=== PATIENT | female | born 1970 | race Caucasian/White ===

== ENCOUNTER 2021-02-01 17:44 | Emergency (ER) | payer OTHER, SELFPAY ==
[2021-02-01 17:55] VITALS: BP 185/99; PULSE 94; RESP 16; TEMP 37.1; O2SAT 98
--- NOTE | 2021-02-01 18:16 | ED.URI ---
HPI - URI/Sore Throat General Chief Complaint: Upper Respiratory Infection Stated Complaint: sore throat Source: patient and RN notes reviewed Mode of arrival: ambulatory History of Present Illness HPI Narrative: This is a 50-year-old female who presented to urgent care with complaints of left ear pain and throat pain that occurred 2 days ago. Patient notes that it is difficult for her to swallow and she has used throat lozenges to relieve her pain with no relief. The patient denies SOB, CP, palpitation, extremity numbness, lightheadedness, dizziness, constipation, diarrhea, chills, or fever. MD elicited complaint: sore throat Related Data Allergies Allergy/AdvReac Type Severity Reaction Status Date / Time latex Allergy Unknown Unknown Verified 02/01/21 18:10 Cat Dander Allergy Mild Unknown Uncoded 02/01/21 18:10 Molds and Smuts Allergy Mild Unknown Uncoded 02/01/21 18:10 Review of Systems Review of Systems: A 14 organ system Review of Systems was performed and pertinent positives included in the HPI, otherwise remaining ROS is negative. [facility] Family History Family History Mother Family history of chronic obstructive pulmonary disease Social History Social History Smoking status: Never smoker Second hand tobacco smoke exposure: No Alcohol intake: current Exam Narrative: GENERAL: This is a well-nourished, well-developed patient, in no apparent distress. HEAD: normocephalic, atraumatic. EYES: PERRL. Sclera clear/white. Vision is grossly intact. EARS: External ears normal, auditory canals clear and without drainage, TMs normal without perforation. Hearing grossly intact. NOSE: External nose normal with no obvious nasal discharge, nares without redness, no rhinorrhea. THROAT: Mucous membranes moist, posterior pharynx edema, erythematous. NECK: Neck supple, non-tender without lymphadenopathy, masses or thyromegaly. CARDIOVASCULAR: Regular rate and rhythm without murmurs, gallops, or rubs. RESPIRATORY: Clear to auscultation. Breath sounds equal bilaterally. No wheezes, rales, or rhonchi. GASTROINTESTINAL: Abdomen soft, non-tender, nondistended. Bowel sounds are active. No hepato-splenomegaly, or palpable masses. No guarding. SKIN: warm, intact with no suspicious lesions or rash, good texture and turgor. NEURO: awake, alert, and oriented to person, place and time. There were no obvious focal neurologic abnormalities. Steady gait EXTREMITIES: Normal range of motion. No edema. No calf tenderness. Negative Homans sign bilaterally. BACK: Nontender without deformity or crepitance. No flank tenderness. Course Course Emergency Course: Patient will be given Augmentin for the treatment of strep Vital Signs Vital signs: Vital Signs Temperature 98.7 F 02/01/21 17:55 Pulse Rate 94 02/01/21 17:55 Respiratory Rate 16 02/01/21 17:55 Blood Pressure 185/99 H 02/01/21 17:55 Pulse Oximetry 98 02/01/21 17:55 Temperature 98.7 F 02/01/21 17:55 Pulse Rate 94 02/01/21 17:55 Respiratory Rate 16 02/01/21 17:55 Blood Pressure 185/99 H 02/01/21 17:55 Pulse Oximetry 98 02/01/21 17:55 MDM - URI/Sore Throat Differential Diagnosis Differential diagnosis: Likely upper respiratory infection, sinusitis, influenza and pharyngitis Lab Data Labs: Strep Screen Positive Group A Strep *(Reference Range: Negative)* Discharge Plan Discharge Clinical Impression: Strep pharyngitis Otitis media Qualifiers: Otitis media type: unspecified Chronicity: acute Qualified Code(s): H66.90 - Otitis media, unspecified, unspecified ear Patient Disposition: Home, Self-Care Condition: Stable Instructions: Antibiotic Form, Pharyngitis (ED), Ear Infection (ED) Additional Instructions: Take all medications as prescribed How are ear infections treat
[2021-02-01] MEDS: cloNIDine HCL 0.1 MG TABLET PO (18:32)
== END 2021-02-01 18:40 | disposition home or self-care (01) ==
PROVIDERS: Emergency Provider Nurse Practitioner
DX: H66.90 Otitis media, unspecified, unspecified ear (principal)
CPT/HCPCS: 87880; 99213; A9270; G0463

== ENCOUNTER 2022-11-06 13:30 | Emergency (ER) | payer OTHER, SELFPAY ==
--- NOTE | ~2022-11-06 | CT_ITS ---
EXAMINATION: CT abdomen pelvis wo con DATE: 11/06/2022 15:53 INDICATION: Right flank pain, hematuria TECHNIQUE: Computed tomography (CT) of the abdomen and pelvis was performed without intravenous contr ast. The dose-length product (DLP) was 1652.52 mGy-cm. Automated exposure control and iterative recon struction technique were employed. COMPARISON: 03/11/2018 FINDINGS: Minimal dependent atelectasis is present in the lung bases. The heart size is normal. Calci fied coronary artery atherosclerosis is noted. There is a small sliding hiatal hernia. There are geog raphic areas of low attenuation in the liver, likely hepatic steatosis. The spleen, pancreas, gallbla dder, and adrenal glands are normal. The right kidney is unremarkable. There is a 3.7 cm cyst of the left kidney. No stones are identified in the kidneys, ureters, or bladder. No hydronephrosis or hydro ureter. Colonic diverticulosis is present without evidence of diverticulitis. There are surgical apple ges of the distal small bowel. No free intraperitoneal gas or evidence of bowel obstruction. No patho logically enlarged abdominal or pelvic lymph nodes are identified. There is a small umbilical hernia containing fat. There is mild lumbar spondylosis. IMPRESSION: 1. No CT correlate for the patient's symptoms. Reviewed, dictated and finalized at location F.
[2022-11-06 13:45] VITALS: BP 125/68; PULSE 90; RESP 20; TEMP 36.6; O2SAT 98
[2022-11-06 15:10] LABS: Basophils Percent Auto 0.4 % (0.2-1.2); Eosinophils Absolute Auto 0.2 K/mm3 (0-0.3); Eosinophils Percent Auto 1.9 % (0-4.4); Hematocrit 36.7 % (37.0-47.0); Hemoglobin 11.3 g/dL (12.0-15.0); Immature Granulocyte Absolute 0.02 K/mm3 (0.00-0.031); Immature Granulocyte Percent A 0.3 % (0-0.5); Lymphocytes Absolute Auto 1.92 K/mm3 (0.9-3.2); Lymphocytes Percent Auto 24.6 % (18.3-44.2); Mean Corpuscular HGB Conc 30.8 g/dl (32-36); Mean Corpuscular Hemoglobin 29.6 pg (26-34); Mean Corpuscular Volume 96.1 fl (80-100); Mean Platelet Volume 10.5 fl (7.4-10.4); Monocytes Absolute Auto 0.5 K/mm3 (0.1-0.6); Monocytes Percent Auto 6.1 % (2.6-8.5); Neutrophils Absolute Auto 5.2 K/mm3 (1.3-6.7); Neutrophils Percent Auto 66.7 % (45.5-73.1); Platelet Count Result 244 k/mm3 (150-375); Red Blood Count 3.82 M/mm3 (4.2-5.4); White Blood Count 7.8 K/mm3 (4.5-10.0)
[2022-11-06 15:12] LABS: Appearance Urine Clear (Clear); Bilirubin Urine Negative (Negative); Blood Urine Negative (Negative); Color Urine Yellow (Yellow); Glucose Urine UA Negative (Negative); Ketones Urine Negative (Negative); Leukocyte Esterase Ur Negative LEU/UL (Negative); Nitrate Urine Negative (Negative); Protein Urine Negative (Negative); Specific Grav Ur 1.024 (1.001-1.035); pH Urine 6.5 (5.0-9.0)
[2022-11-06 15:22] LABS: Alanine Aminotransferase 33 U/L (6-35); Albumin Level 4.1 g/dL (3.5-5.1); Alkaline Phosphatase 80 U/L (38-126); Anion Gap 8 mmol/L (8-16); Aspartate Amino Transferase 28 U/L (14-36); Bilirubin,Total 0.8 mg/dL (0.2-1.3); Blood Urea Nitrogen 30 mg/dL (7-17); Calcium 8.8 mg/dL (8.4-10.2); Carbon Dioxide 28 mmol/L (22-30); Chloride 101 mmol/L (98-107); Estimated CRCL calculation 82 ml/min; Estimated Glomerular Filt Rate > 60; Glucose 100 mg/dL (65-110); Potassium 3.8 mmol/L (3.4-5.0); Sodium 137 mmol/L (137-145)
[2022-11-06 15:23] VITALS: BP 156/95; PULSE 85; RESP 20; O2SAT 100
[2022-11-06 15:29] LABS: Add Urine Microscopic? NO
--- NOTE | 2022-11-06 15:36 | ED.ABDPAIN ---
HPI - Abdominal Pain General Chief Complaint: Abdominal Pain Stated Complaint: R Lower back pain Time Seen by Provider: 11/06/22 15:17 History of Present Illness HPI narrative: Patient is a 52-year-old female with a history of hypertension, hyperlipidemia presenting with flank pain. Patient states that for the last several days she has had right flank pain that is worsened with moving her right leg. States that she has had some hematuria. She denies abdominal pain, nausea or vomiting. States that she did have a few episodes of diarrhea. No melena or hematochezia. Denies chest pain, shortness of breath, fevers, lightheadedness. Has been using Tylenol with moderate relief. Related Data Home Medications Medication Instructions Recorded Confirmed multivitamin (Daily Multi-Vitamin 1 tablet PO DAILY 03/02/21 11/01/22 tablet) Allergies Allergy/AdvReac Type Severity Reaction Status Date / Time latex Allergy Unknown Unknown Verified 11/01/22 13:29 Cat Dander Allergy Mild Unknown Uncoded 11/01/22 13:29 Molds and Smuts Allergy Mild Unknown Uncoded 11/01/22 13:29 Review of Systems Review of Systems: All systems reviewed & are unremarkable except as noted in HPI and below PMFSH Past Medical History Medical History Allergies Asthma Body mass index [BMI] 40.0-44.9, adult (04/28/15) Chronic fatigue Hypertension Left ovarian cyst Morbid (severe) obesity due to excess calories (04/28/15) Sleep apnea in adult Surgical History Surgical History H/O: hysterectomy Family History Family History Mother Alcoholism Asthma Diabetes mellitus Hypertension Father Alcoholism Cancer Diabetes mellitus Hypertension Heart disease Sibling Cancer Diabetes mellitus Grandparent Alcoholism Cancer Diabetes mellitus Hypertension Grandparent Alcoholism Cancer Diabetes mellitus Hypertension Heart disease Social History Social History Smoking status: Never smoker Second hand tobacco smoke exposure: No Alcohol intake: current Drinks per week: 2 Alcohol use details: wine Substance use: never Lack of Transportation: No Lack of Food: Never True Current Housing: I Have Housing Concerned About Future Housing: No Difficulty Paying Gas/Electric Bills: No Difficulty Paying for Meds: No Currently Unemployed: No Difficulty w/ Childcare or Family Care: No Living arrangements: with roommate(s) Occupation/Education: occupation Additional occupation/education comments: Customer Service Gender identity (if verbalized by the patient): Female Exam Narrative: GENERAL: Well-appearing and in no acute distress. Pleasant and cooperative. HEAD: Normocephalic, atraumatic. EYES: PERRLA and EOMI. ENT: Mucous membranes moist. NECK: Supple. CHEST: No respiratory distress. HEART: Regular rate and rhythm ABDOMEN: Soft, nontender, nondistended; + right flank tenderness EXTREMITIES: Normal range of motion. SKIN: Warm, dry, no rash. NEURO: Alert and oriented x3. No focal gross sensory or motor deficits PSYCH: Normal mood and affect. Course Vital Signs Vital signs: Vital Signs Temperature 97.8 F 11/06/22 13:45 Pulse Rate 90 11/06/22 13:45 Respiratory Rate 20 11/06/22 13:45 Blood Pressure 125/68 11/06/22 13:45 Pulse Oximetry 98 11/06/22 13:45 Oxygen Delivery Room Air 11/06/22 13:45 Temperature 97.8 F 11/06/22 13:45 Pulse Rate 87 11/06/22 19:05 Respiratory Rate 20 11/06/22 19:05 Blood Pressure 147/88 H 11/06/22 19:05 Pulse Oximetry 100 11/06/22 19:05 Oxygen Delivery Room Air 11/06/22 13:45 MDM - Abdominal Pain MDM Narrative Medical decision making narrative: Patient is a 52-year-old female presenting wit
[2022-11-06 15:43] LABS: Pregnancy On Board Control Positive; Urine Pregnancy Test Negative
--- NOTE | 2022-11-06 15:47 | PC.NURSE ---
pt taken for CT scan at this time
--- NOTE | 2022-11-06 15:56 | PC.NURSE ---
pt returned to room 4 at this time
[2022-11-06] MEDS: ACETAMINOPHEN 500 MG TABLET 1000 MG PO (16:01)
[2022-11-06 19:05] VITALS: BP 147/88; PULSE 87; RESP 20; O2SAT 100
== END 2022-11-06 19:05 | disposition home or self-care (01) ==
PROVIDERS: Emergency Medicine; Emergency Provider Emergency Medicine; PCP Family Medicine
DX: M54.50 Low back pain, unspecified (principal); J45.909 Unspecified asthma, uncomplicated; I10 Essential (primary) hypertension; E66.01 Morbid (severe) obesity due to excess calories; Z68.42 Body mass index [BMI] 45.0-49.9, adult; G47.30 Sleep apnea, unspecified; Z90.710 Acquired absence of both cervix and uterus
CPT/HCPCS: 36415; 74176; 80053; 81003; 81025; 85025; 99284; A9270

== ENCOUNTER 2023-02-28 09:04 | Outpatient (CLI) | payer OTHER, SELFPAY ==
--- NOTE | ~2023-02-28 | NM_ITS ---
EXAMINATION: NM evaristo stress w perfusion DATE: 02/28/2023 13:28 INDICATION: Dyspnea on exertion TECHNIQUE: Rest images were obtained following intravenous administration of 9.5 mCi Tc99m tetrofosmi n (Myoview). The patient was infused intravenously with Lexiscan (Regadenoson). Then, 31 mCi Tc99m te trofosmin (Myoview) was administered intravenously, and stress images were obtained. Data was reconst ructed into short axis and horizontal and vertical long axis SPECT images. Gated SPECT images were al so obtained. COMPARISON: None. FINDINGS: There is no definite reversible or fixed perfusion abnormality to suggest ischemia or infar ction. There is normal left ventricular chamber size, wall motion and ejection fraction. Left ventr icular ejection fraction measures >70%. IMPRESSION: 1. Normal myocardial perfusion at rest and during stress. 2. Left ventricular ejection fraction measuring >70%. Reviewed, dictated and finalized at location A. OPERATOR
--- NOTE | 2023-02-28 09:34 | ECHO_ITS ---
Patient Info Name: Ora Robison Age: 52 years : 1970 Gender: Female Ht: 62 in Wt: 270 lbs BSA: 2.39 m2 HR: 80 bpm BP: 120 / 80 mmHg Technical Quality: Fair Exam Date: 02/28/2023 10:43 AM Exam Location: Echo Lab Patient Status: Outpatient Admit Date: 02/28/2023 Staff Ordering Physician: Bipin Salmon DO Attending Provider: Bipin Salmon DO Referring Physician: Luis Antonio CALVILLO; Exam Type: CA echo doppler color flow Study Info Indications R06.09 - Other forms of dyspnea Complete two-dimensional, color flow and Doppler transthoracic echocardiogram is performed. Summary 1. Complete two-dimensional, color flow and Doppler transthoracic echocardiogram is performed. 2. Left ventricular chamber dimension is normal. 3. Left ventricular systolic function is normal, estimated at 65-70%. 4. There is mild concentric increased left ventricular wall thickness. 5. The left ventricular diastolic function is abnormal. 6. E/e' 11 is mildly elevated. 7. Left atrial chamber dimension is mildly enlarged. 8. There is moderate aortic valve sclerosis. 9. The mitral valve has mildly calcified annulus. 10. There is mild mitral valve regurgitation. 11. Dilated inferior vena cava with >50% collapse upon inspiration consistent with elevated right atrial pressure, 10 mmHg. Left Ventricle E/e' 11 is mildly elevated. Left ventricular chamber dimension is normal. Left ventricular systolic function is normal, estimated at 65-70%. There is mild concentric increased left ventricular wall thickness. The left ventricular diastolic function is abnormal. Right Ventricle Right ventricular systolic function is normal and with normal TAPSE 3.6 cm. Right ventricular chamber dimension is normal. Left Atria Left atrial chamber dimension is mildly enlarged. Right Atria Right atrial chamber dimension is normal. Aortic Valve The aortic valve is trileaflet. There is moderate aortic valve sclerosis. There is no aortic valve stenosis. There is no aortic valve regurgitation. Pulmonic Valve There is no pulmonic regurgitation. Mitral Valve The mitral valve has mildly calcified annulus. There is no mitral valve stenosis. There is mild mitral valve regurgitation. Tricuspid Valve There is no tricuspid valve regurgitation. Pericardium/Pleural There is no pericardial effusion. Inferior Vena Cava Dilated inferior vena cava with >50% collapse upon inspiration consistent with elevated right atrial pressure, 10 mmHg. Aorta The aortic root size at the sinus of Valsalva is normal. Left Ventricular Outflow Tract Name Value Normal LVOT 2D LVOT Diameter 2.1 cm LVOT Doppler LVOT Peak Gradient 4 mmHg LVOT Mean Gradient 3 mmHg LVOT VTI 30 cm LVOT VTI/AV VTI Ratio 0.7 LVOT Stroke Volume 108 ml LVOT CO 7.0 l/min LVOT CI 2.9 l/min/m2 Pulmonic Valve Name Value Normal
--- NOTE | 2023-02-28 09:35 | EST_ITS ---
Patient Info Name: Ora Robison Age: 52 years : 1970 Gender: Female Ht: 62 in Wt: 260 lbs BSA: 2.34 m2 Exam Date: 02/28/2023 12:06 PM Exam Location: Echo Lab Patient Status: Outpatient Admit Date: 02/28/2023 Staff Ordering Physician: Bipin Salmon DO Attending Provider: Bipin Salmon DO Exercise Technologist: Fadumo Hernandez RDCS Exercise Physician: Bipin Salmon DO Exam Type: CA stress evaristo w NM Study Info Indications R07.9 - Chest pain, unspecified A regadenoson stress test was performed. Summary 1. 1. Negative lexiscan stress test for ischemic ST changes by ECG criteria. 2. 2. Baseline hypertension. 3. 3. Nuclear scan to follow and will be reported separately. Please correlate with it. 4. 4. Patient informed of the above results. Protocol: Lexiscan Stress ECG Details Stage: REST Duration (min): 1 min : 51 sec HR (bpm): 76 SBP (mmHg): 157 DBP (mmHg): 98 Stage: REST Duration (min): 7 min : 42 sec HR (bpm): 77 SBP (mmHg): 157 DBP (mmHg): 98 Stage: STAGE 1 Duration (min): 1 min : 0 sec HR (bpm): 94 SBP (mmHg): 157 DBP (mmHg): 94 Stage: RECOVERY Duration (min): 1 min : 0 sec HR (bpm): 102 SBP (mmHg): 159 DBP (mmHg): 92 Stage: RECOVERY Duration (min): 2 min : 0 sec HR (bpm): 95 SBP (mmHg): 159 DBP (mmHg): 92 Stage: RECOVERY Duration (min): 3 min : 0 sec HR (bpm): 96 SBP (mmHg): 156 DBP (mmHg): 91 Stage: RECOVERY Duration (min): 3 min : 4 sec HR (bpm): 94 SBP (mmHg): 156 DBP (mmHg): 91 Rest HR: 77 bpm Peak HR: 104 bpm Rest Sys BP: 157 mmHg Peak Sys BP: 159 mmHg Max Pred HR: 170 bpm % Max Pred HR: 61 % Target HR: 145 bpm Max RPP: 16,536 bpm*mmHg Termination Reason: Completed protocol Cardiac Symptoms: Shortness of breath Total Time: 1 min : 0 sec Rest Soler BP: 98 mmHg Peak Soler BP: 92 mmHg Total Dose: 0.4 mg Resting ECG Sinus rhythm. Stress ECG No ST changes. Arrhythmias None. Report Signatures
== END 2023-02-28 09:05 | disposition home or self-care (01) ==
PROVIDERS: PCP Family Medicine; Visit Provider Internal Medicine Cardiovascular Disease
DX: R07.9 Chest pain, unspecified (principal); R06.09 Other forms of dyspnea; I34.0 Nonrheumatic mitral (valve) insufficiency
CPT/HCPCS: 78452; 93017; 93306; A9502; J2785

== ENCOUNTER 2024-08-12 15:37 | Outpatient (CLI) | payer OTHER, SELFPAY ==
--- NOTE | ~2024-08-12 | XR_ITS ---
EXAMINATION: XR chest 2V 08/12/2024 15:59 INDICATION: Shortness of breath PROCEDURE: 2 view chest COMPARISON: 02/15/2012 FINDINGS: The lungs are clear. The cardiomediastinal silhouette is within normal limits. There are no pleural effusions. There is no pneumothorax suspected. Moderate thoracic spondylosis with dextro scoliosis. IMPRESSION: 1: NO ACUTE CARDIOPULMONARY DISEASE. Reviewed, dictated and finalized at location A.
--- NOTE | ~2024-08-12 | US_ITS ---
RIGHT LOWER EXTREMITY VENOUS ULTRASOUND Ordering provider: John Harp DO History: . R60.0 - Localized edema . Comparison: None. FINDINGS: --COMMON FEMORAL: Patent and free of thrombus. Normal compressibility, phasic flow and augmentation. --PROXIMAL SUPERFICIAL FEMORAL: Patent and free of thrombus. Normal compressibility, phasic flow and augmentation. --DISTAL SUPERFICIAL FEMORAL: Patent and free of thrombus. Normal compressibility, phasic flow and au gmentation. --POPLITEAL: Patent and free of thrombus. Normal compressibility, phasic flow and augmentation. --POSTERIOR TIBIAL: Patent and free of thrombus. Normal compressibility, phasic flow and augmentation . IMPRESSION: Negative right lower extremity venous US. No deep vein thrombosis. Reviewed, dictated and finalized at location A.
--- OUTSIDE RECORDS SUMMARY | 2024-08-12 15:41 | XMS_ITS | Clinical Summary ---
Author Organization [facility] Address [address] [place] [address] Care Team Providers Care Functional Tester Typewriters Name Role Phone Alana Davis MD Primary Care Provider [phone] Source Comments [facility],non-owned Affiliates and Associated Physician Practices is amultiple site organization consisting of ambulatory clinics and hospital sitesin [place], [place], [place] and [place]. This disclosure is being madepursuant to the Care Everywhere program and may not contain all information available regarding this patient. Last updated 17.[facility] Allergies Active Allergy Reactions Criticality Noted Date Comments Latex Shortness of Breath High 04/09/2011 Morphine Nausea and/or Vomiting 07/25/2012 Medications * Be aware that medications may not be up to date on this document. Alwaysverify current medications with the patient. No known medications Family History Medical History Relation Name Comments Hypertension Other 1 Diabetes Other 2 Colon Cancer after age 50 or unknown Other 3 Relation Name Status Comments Other 1 Other 2 Other 3 Social History Tobacco Use Types Packs/Day Years Used Date Smoking Tobacco: Never Smokeless Tobacco: Never Alcohol Use Standard Drinks/Week Comments No 0 (1 standard drink = 0.6 oz pur e alcohol) Comments No Sex and Gender Information Value Date Recorded Sex Assigned at Not on file Legal Sex Female 1:05 PM DIRECTOR BUSINESS SYSTEMS Gender Identity Not on file Sexual Orientation Not on file Last Filed Vital Signs Vital Sign Reading Time Taken Comments Blood Pressure 118/72 05/15/2018 4:16 PM CDT Pulse 106 05/15/2018 4:16 PM CDT Temperature 36.8 C (98.3 F) 05/15/2018 4:16 PM CDT Respiratory Rate 14 05/15/2018 4:16 PM CDT Oxygen Saturation 98% 05/15/2018 4:16 PM CDT Inhaled Oxygen Concentration - - Weight 112.5 kg (248 lb) 05/15/2018 4:16 PM CDT Height 157.5 cm (5' 2) 05/15/2018 4:16 PM CDT Body Mass Index 45.36 05/15/2018 4:16 PM CDT Plan of Treatment Health Maintenance Due Date Last Done Comments COLOGUARD (AGES 45-75) - COL ON CA SCREENING 1970 COLON MONITORING 1970 COLONOSCOPY - COLON CA SCREENING 1972 CT COLONOGRAPHY - COLON CA SCREENING 1970 Colorectal Cancer Screening 1970 FIT - COLON CA SCREENING 1970 FLEX SIG - COLON CA SCREENING 1970 LIPID TESTING 1970 MAMMOGRAM 1970 HIV SCREENING 05/06/1987 HEPATITIS C SCREENING 05/01/1990 DTAP/TDAP/TD VACCINES (1 - Tdap) 05/06/1991 HEPATITIS B VACCINE (1 of 3 - 19+ 3-dose series) 05/06/1991 SCREENING FOR DIABETES 05/15/2018 PNEUMOCOCCAL VACCINE 50+ (1 of 1 - PCV) 2022 ZOSTER VACCINE (1 of 2) 2022 COVID-19 VACCINE (1 - 2023-2 5 season) 2023 DEPRESSION SCREENING 02/25/2024 INFLUENZA VACCINE (Season Ended) 2024 HIB VACCINE Aged Out No longer eligi ble based on patient's age to complete this topic HPV VACCINE Aged Out No longer eligi ble based on patient's age to complete this topic MENINGOCOCCAL (Group B) VACC INE SHARED DECISION-MAKING Aged Out No longer eligibl e based on patient's age to complete this topic MENINGOCOCCAL GROUPS A/C/Y/W VACCINE Aged Out No longer eligible b ased on patient's age to [place] [address] MEDICAID [place] Advance Directives * FULL RESUSCITATION (Latest Code Status on File) Date Activated Date Inactivated Comments 10/04/2011 1:16 PM 10/04/2011 5:10 PM Care Teams Functional Tester Typewriters Relationship Specialty Start Date End Date Alana Davis MD PCP - General Family Medicine 07/28/12
--- OUTSIDE RECORDS SUMMARY | 2024-08-12 15:41 | XMS_ITS | Referral Summary ---
Author Organization [facility] [place] [address] Address [address] [place] [address] Care Team Providers Care Front Desk Agent Name Role Phone Shan Gama Primary Care Provider [phone] Allergies No known active allergies Social History Tobacco Use Types Packs/Day Years Used Date Smoking Tobacco: Never Assessed Personal Safety Answer Date Recorded Getting School Help Needed Not on file 05/10 Comments Unknown Sex and Gender Information Value Date Recorded Sex Assigned at Not on file Legal Sex Female 3:30 AM BARGE LOADER Gender Identity Not on file Sexual Orientation Not on file Last Filed Vital Signs Vital Sign Reading Time Taken Comments Blood Pressure 142/68 04/04/2014 8:04 AM BARGE LOADER Pulse 60 04/04/2014 8:04 AM BARGE LOADER Temperature 36.4 C (97.6 F) 04/04/2014 8:04 AM BARGE LOADER Respiratory Rate - - Oxygen Saturation 100% 04/04/2014 8:04 AM BARGE LOADER Inhaled Oxygen Concentration - - Weight 117.9 kg (260 lb) 04/04/2014 8:04 AM BARGE LOADER Height 157.5 cm (5' 2) 04/04/2014 8:04 AM BARGE LOADER Body Mass Index 47.55 04/04/2014 8:04 AM BARGE LOADER Plan of Treatment Not on file Insurance [facility] CHOICE [facility] HMO/PPO Address: [facility] [address] [place] [address] Care Teams Front Desk Agent Relationship Specialty Start Date End Date Shan Gama DO PCP - General Family Medicine 03/05/21
--- OUTSIDE RECORDS SUMMARY | 2024-08-12 15:41 | XMS_ITS | Clinical Summary ---
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 HOUSE OPERATOR Gender Identity Not on file Sexual Orientation Not on file Last Filed Vital Signs Vital Sign Reading Time Taken Comments Blood Pressure 142/68 04/04/2014 8:04 AM PUMP HOUSE OPERATOR Pulse 60 04/04/2014 8:04 AM PUMP HOUSE OPERATOR Temperature 36.4 C (97.6 F) 04/04/2014 8:04 AM PUMP HOUSE OPERATOR Respiratory Rate - - Oxygen Saturation 100% 04/04/2014 8:04 AM PUMP HOUSE OPERATOR Inhaled Oxygen Concentration - - Weight 117.9 kg (260 lb) 04/04/2014 8:04 AM PUMP HOUSE OPERATOR Height 157.5 cm (5' 2) 04/04/2014 8:04 AM PUMP HOUSE OPERATOR Body Mass Index 47.55 04/04/2014 8:04 AM PUMP HOUSE OPERATOR Plan of Treatment Not on file Insurance [facility] [place] [address] Care Teams Lamination Builder Relationship Specialty Start Date End Date Shan Gama DO PCP - General Family Medicine 03/05/21
== END 2024-08-12 15:38 | disposition home or self-care (01) ==
PROVIDERS: PCP Family Medicine; Visit Provider Family Medicine
DX: R60.0 Localized edema (principal); R06.02 Shortness of breath
CPT/HCPCS: 71046; 93971

== ENCOUNTER 2024-08-25 08:07 | Outpatient (CLI) | payer OTHER, SELFPAY ==
--- NOTE | ~2024-08-25 | CT_ITS ---
Clinical Indication: Elevated d-dimer CT Scan of the Chest with Contrast: Technique: Contiguous sections were acquired throughout the chest after intravenous administration of 100 cc of Omnipaque 350. Dose reduction technique was used on this scan by utilizing automated expos ure control and iterative reconstruction technique. The dose-length product (DLP) was 935.16 mGy-cm. Findings: There is no evidence of any significant mediastinal, hilar or axillary lymphadenopathy. No central pu lmonary embolus seen. Soft tissue evaluation for small peripheral pulmonary emboli due to mild streak artifact and motion artifact.. There is no evidence of aortic dissection or aneurysm. There is no evidence of pleural or pericardial effusion. The lungs are clear. No pulmonary nodules or infiltrates are noted. Images through the upper abdomen reveal no abnormalities. Impression: No significant abnormality seen. Suboptimal evaluation for small, peripheral pulmonary emboli due to mild motion artifact. Reviewed, dictated and finalized at [facility]. Impression: No significant abnormality seen. Suboptimal evaluation for small, peripheral pu lmonary emboli due to mild motion artifact.
--- OUTSIDE RECORDS SUMMARY | 2024-08-25 08:10 | XMS_ITS | Referral Summary ---
Author Organization [facility] [place] [address] Address [address] [place] [address] Care Team Providers Care Roll Over Press Operator Name Role Phone Shan Gama Primary Care Provider [phone] Allergies No known active allergies Social History Tobacco Use Types Packs/Day Years Used Date Smoking Tobacco: Never Assessed Personal Safety Answer Date Recorded Getting School Help Needed Not on file 05/10 Comments Unknown Sex and Gender Information Value Date Recorded Sex Assigned at Not on file Legal Sex Female 3:30 AM SUPERVISOR CAB Gender Identity Not on file Sexual Orientation Not on file Last Filed Vital Signs Vital Sign Reading Time Taken Comments Blood Pressure 142/68 04/04/2014 8:04 AM SUPERVISOR CAB Pulse 60 04/04/2014 8:04 AM SUPERVISOR CAB Temperature 36.4 C (97.6 F) 04/04/2014 8:04 AM SUPERVISOR CAB Respiratory Rate - - Oxygen Saturation 100% 04/04/2014 8:04 AM SUPERVISOR CAB Inhaled Oxygen Concentration - - Weight 117.9 kg (260 lb) 04/04/2014 8:04 AM SUPERVISOR CAB Height 157.5 cm (5' 2) 04/04/2014 8:04 AM SUPERVISOR CAB Body Mass Index 47.55 04/04/2014 8:04 AM SUPERVISOR CAB Plan of Treatment Not on file Insurance [facility] CHOICE PLUS Care Teams Roll Over Press Operator Relationship Specialty Start Date End Date Shan Gama DO PCP - General Family Medicine 03/05/21
--- OUTSIDE RECORDS SUMMARY | 2024-08-25 08:10 | XMS_ITS | Clinical Summary ---
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 Gender Identity Not on file Sexual Orientation Not on file Last Filed Vital Signs Vital Sign Reading Time Taken Comments Blood Pressure 142/68 04/04/2014 8:04 AM RAG WILLOW OPERATOR Pulse 60 04/04/2014 8:04 AM RAG WILLOW OPERATOR Temperature 36.4 C (97.6 F) 04/04/2014 8:04 AM RAG WILLOW OPERATOR Respiratory Rate - - Oxygen Saturation 100% 04/04/2014 8:04 AM RAG WILLOW OPERATOR Inhaled Oxygen Concentration - - Weight 117.9 kg (260 lb) 04/04/2014 8:04 AM RAG WILLOW OPERATOR Height 157.5 cm (5' 2) 04/04/2014 8:04 AM RAG WILLOW OPERATOR Body Mass Index 47.55 04/04/2014 8:04 AM RAG WILLOW OPERATOR Plan of Treatment Not on file Insurance [facility] [place] [address] Care Teams River Transportation Worker Relationship Specialty Start Date End Date Shan Gama DO PCP - General Family Medicine 03/05/21
--- OUTSIDE RECORDS SUMMARY | 2024-08-25 08:10 | XMS_ITS | Clinical Summary ---
Author Organization [facility] Address [address] [place] [address] Care Team Providers Care Industrial Twisting Machine Operator Name Role Phone Alana Davis MD Primary Care Provider [phone] Source Comments [facility],non-owned Affiliates and Associated Physician Practices is amultiple site organization consisting of ambulatory clinics and hospital sitesin [place], [place], [place] and [place]. This disclosure is being madepursuant to the Care Everywhere program and may not contain all information available regarding this patient. 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
== END 2024-08-25 08:08 | disposition home or self-care (01) ==
PROVIDERS: PCP Family Medicine; Visit Provider Family Medicine
DX: R79.89 Other specified abnormal findings of blood chemistry (principal); R06.02 Shortness of breath
CPT/HCPCS: 71275; Q9967